=== PATIENT | female | born 1955 | race Caucasian/White ===

== ENCOUNTER → 2021-11-08 | Outpatient (CLI) | payer MEDICARE, OTHER ==
[~2021-11-08] MED LIST: AMITRIPTYLINE H50 MG PO; COLACE100 MG PO; DICLOFENAC POTA50 MG PO; ELIQUIS2.5 MG PO; HYDROCHLOROTH12.5 MG PO; IBUPROFEN400 MG PO; LEVOTHYROXINE25 MCG PO; LISINOPRIL10 MG PO; NEURONTIN 400400 MG PO; NORCO 10-325 T1 EACH PO; NORCO 7.5-3251 EACH PO; PERCOCET 10-321 EACH PO; PERCOCET 7.5-31 EACH PO; PRILOSEC OTC20 MG PO
== END ==
LOC: MRI 13:35
DX: M51.16 Intervertebral disc disorders with radiculopathy, lumbar region (principal); M48.061 Spinal stenosis, lumbar region without neurogenic claudication
CPT/HCPCS: 36415; 72158; 82565; A9577